=== PATIENT | male | born 1955 | race Caucasian/White ===

== ENCOUNTER → 2020-06-26 | Outpatient (CLI) | payer BC ==
[~2020-06-26] MED LIST: HYDR25TA6 PO; LOSA50TA14 PO
[2020-06-26 13:29] LABS: BASOPHILS % (AUTO) 1 % (0-1); EOSINOPHILS % (AUTO) 5 % (1-7); LYMPHOCYTES % (AUTO) 26 % (22-44); MEAN CORPUSCULAR HGB CONC 33.8 g/dL (33.2-36.2); MEAN PLATELET VOLUME 8.6 fL (7.4-10.4); MONOCYTES % (AUTO) 10 % (2-9); NEUTROPHILS % (AUTO) 58 % (42-75); PLATELET COUNT 314 x10^3/uL (130-400); RED BLOOD COUNT 5.05 x10^6/uL (4.38-5.82); RED CELL DISTRIBUTION WIDTH 14.2 % (9.4-14.8)
[2020-06-26 13:31] LABS: MD NO
[2020-06-26 13:33] LABS: MICROSCOPIC AUTO
[2020-06-26 13:41] LABS: ALBUMIN 3.8 g/dL (3.4-5.0); ANION GAP 7 mmol/L (5-15); CALCIUM 9.2 mg/dL (8.5-10.1); CHLORIDE 104 mmol/L (98-107)
[2020-06-26 13:44] LABS: ALANINE AMINOTRANSFERASE 70 U/L (12-78); ALKALINE PHOSPHATASE 58 U/L (45-117); BILIRUBIN,TOTAL 0.7 mg/dL (0.2-1.0); CREATININE 0.97 mg/dL (0.7-1.3); TOTAL PROTEIN 8.3 g/dL (6.4-8.2)
[2020-06-26 13:46] LABS: INTERNATIONAL NORMALIZED RATIO 1.06 (0.93-1.1); PROTHROMBIN TIME 11.3 Seconds (9.6-11.5)
== END | disposition home or self-care (01) ==
LOC: STAR 11:41
PROVIDERS: ATTEND Obstetrics & Gynecology
DX: Z01.812 Encounter for preprocedural laboratory examination (principal); Z20.822 Contact with and (suspected) exposure to COVID-19; N20.0 Calculus of kidney
CPT/HCPCS: 36415; 80053; 81001; 85025; 85610; 87086; 93005; U0003

== ENCOUNTER 2020-07-02 11:44 | Day surgery (SDC) | payer BC ==
[~2020-07-02] VITALS: Ht 190.5 cm; Wt 192.0 kg
[2020-07-02 12:24] VITALS: BP 174/94
[2020-07-02] MEDS ORDERED: LACTATED RINGERS 1,000 ML IV SCH (12:30)
[2020-07-02] MEDS ORDERED: CHLORHEXIDINE 15 ML UDC PO ONE (12:30)
[2020-07-02] MEDS ORDERED: FENTANYL PF 100 MCG/2ML ONE ×3 (13:42→16:46)
[2020-07-02] MEDS ORDERED: MIDAZOLAM 1 MG/ML, 2ML ONE (13:43)
[2020-07-02] MEDS ORDERED: DEXAMETHASONE 4 MG/ML, 1ML ONE (14:26)
[2020-07-02] MEDS ORDERED: PROPOFOL 10 MG/ML, 20ML ONE (14:26)
[2020-07-02] MEDS ORDERED: SUCCINYLCHOLINE 20 MG/ML, 10ML ONE (14:26)
[2020-07-02] MEDS ORDERED: ONDANSETRON 2MG/ML, 2ML ONE (14:26)
[2020-07-02] MEDS ORDERED: NEOSTIGMINE 1 MG/ML, 10ML ONE (14:26)
[2020-07-02] MEDS ORDERED: CEFAZOLIN 1,000 MG ONE (14:26)
[2020-07-02] MEDS ORDERED: PHENYLEPHRINE 10 MG/ML ONE (14:26)
[2020-07-02] MEDS ORDERED: ROCURONIUM 10 MG/ML,10ML ONE (14:26)
[2020-07-02] MEDS ORDERED: GLYCOPYRROLATE 0.2MG/1ML, 5ML ONE (14:26)
[2020-07-02] MEDS ORDERED: PROMETHAZINE 25 MG/ML, 1ML IVPush PRN (15:30)
[2020-07-02] MEDS ORDERED: ONDANSETRON 2MG/ML, 2ML IVPush PRN (15:30)
[2020-07-02] MEDS ORDERED: MEPERIDINE/PF 25MG/0.5ML IVPush PRN (15:30)
[2020-07-02] MEDS ORDERED: FENTANYL PF 100 MCG/2ML IV PRN (15:30)
[2020-07-02] MEDS ORDERED: KETOROLAC 30 MG/1 ML IVPush PRN (15:30)
[2020-07-02] MEDS ORDERED: HYDROcodone/APAP 7.5-325MG/15ML UDC PO PRN (15:30)
[2020-07-02] MEDS ORDERED: OXYcodone 5 MG/5 ML ORAL.SOL UDC ONE ×2 (16:25→16:46)
[2020-07-02] MEDS ORDERED: hydrALAzine 20 MG/ML, 1ML ONE (16:25)
[2020-07-02] MEDS ORDERED: ACETAMINOPHEN 650 MG/20.3 ML UDC ONE (16:25)
[2020-07-02] MEDS: OXYcodone 5 MG/5 ML ORAL.SOL UDC PO PRN ×2 (16:29→16:47)
[2020-07-02] MEDS ORDERED: KETOROLAC 30 MG/1 ML ONE (16:40)
== END 2020-07-02 18:20 | disposition home or self-care (01) ==
LOC: OR 11:44 → OUT 18:20
PROVIDERS: ATTEND Urology
DX: N20.0 Calculus of kidney (principal); N21.0 Calculus in bladder; G47.33 Obstructive sleep apnea (adult) (pediatric); I10 Essential (primary) hypertension; E66.01 Morbid (severe) obesity due to excess calories; Z68.43 Body mass index [BMI] 50.0-59.9, adult; Z79.899 Other long term (current) drug therapy; Z87.442 Personal history of urinary calculi; Z91.048 Other nonmedicinal substance allergy status
CPT/HCPCS: 52353; 74018; 82360; 88300; C1758; C1769; J0330; J0690; J1100; J1885; J2250; J2370; J2405; J2704; J2710; J3010; J7120; 76000

== ENCOUNTER 2020-07-04 05:55 | Emergency (ER) | payer BC ==
[~2020-07-04] VITALS: Ht 190.5 cm; Wt 193.0 kg
--- NOTE | 2020-07-04 06:28 | NUR ---
INITIAL PT CONTACT. PT PRESENTS TO ED C/O "BLOOD SUGAR ALL OVER THE PLACE, FREQUENT URINATION, DARK BLOODY URINE, WITH RECENT KIDNEY STONE REMOVAL [address] HOLLAND, ALSO FUNKY BLOOD PRESSURE". FSBS 254 IN TRIAGE. PT. REPORTS FSBS AT HOME 300. PT SITTING UPRIGHT ON GURJIMMY, NADNeil, VSS. SPOUSE AT BEDSIDE AND CALL LIGHT WITHIN REACH. AWAITING ERP.
[2020-07-04 06:40] LABS: BASOPHILS % (AUTO) 1 % (0-1); EOSINOPHILS % (AUTO) 1 % (1-7); LYMPHOCYTES % (AUTO) 20 % (22-44); MEAN CORPUSCULAR HEMOGLOBIN 29.9 pg (27.5-34.5); MEAN CORPUSCULAR HGB CONC 33.7 g/dL (33.2-36.2); MEAN PLATELET VOLUME 8.8 fL (7.4-10.4); MONOCYTES % (AUTO) 6 % (2-9); NEUTROPHILS % (AUTO) 72 % (42-75); PLATELET COUNT 326 x10^3/uL (130-400); RED BLOOD COUNT 4.95 x10^6/uL (4.38-5.82); RED CELL DISTRIBUTION WIDTH 13.9 % (9.4-14.8)
--- NOTE | 2020-07-04 06:40 | NUR ---
3-WAY CATH INSERTION PER COMPANY POLICY, AREA CLEANSED PER POLICY. PT TOLERATED WELL. 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 ERP AWARE. PT DENIES ANY NEEDS AT THIS TIME. CALL LIGHT AND PERSONAL BELONGINGS WITHIN REACH. SPOUSE AT BEDSIDE.
[2020-07-04 06:42] LABS: MICROSCOPIC INDICATED
[2020-07-04 06:42] LABS: MD NO
[2020-07-04 06:48] LABS: ALANINE AMINOTRANSFERASE 50 U/L (12-78); ALBUMIN 3.4 g/dL (3.4-5.0); ANION GAP 7 mmol/L (5-15); CALCIUM 8.1 mg/dL (8.5-10.1); CHLORIDE 105 mmol/L (98-107); CREATININE 1.05 mg/dL (0.7-1.3)
[2020-07-04 06:51] LABS: ALKALINE PHOSPHATASE 55 U/L (45-117); BILIRUBIN,TOTAL 0.3 mg/dL (0.2-1.0); TOTAL PROTEIN 7.7 g/dL (6.4-8.2)
--- NOTE | 2020-07-04 06:59 | NUR ---
REPORT RECEIVED FROM EDUAR FABIAN
--- NOTE | 2020-07-04 07:09 | NUR ---
BEDSIDE REPORT TO DAISY AND CHRISTINA FABIAN
--- NOTE | 2020-07-04 07:49 | NUR ---
URINE IS LOOKING CLEAR AFTER 3L CBI. MD LYN REASSESSED, RN NSTRUCTED TO PAUSE CBI. CBI CLAMPED, MARTI DRAINING FREELY. PT A&O, RESPS EVEN AND UNLABORED, PT DENIES PAIN. RN MONITORING UO, AWAITING REASSESSMNT AND DISPO.
[2020-07-04 08:47] VITALS: BP 146/77
--- NOTE | 2020-07-04 09:03 | NUR ---
UO REASSESSED BY MD LYN, URINE LIGHT PNK AND DRAINING FREELY FROM MARTI. MARTI CATH DC'D PER MD ORDER. PT GIVEN DISCHARGE INSTRUCTIONS WITH UROLOGY FOLLOW UP. PT EDUCATED ON RETURN CRITERIA. PT A&O, RESPS EVEN AND UNLABORED, AMBULATED TO DISCHARGE DESK WITH STEADY GAIT. NO COMPLAINT OF PAIN AT DISCHARGE.
== END 2020-07-04 09:04 | disposition home or self-care (01) ==
LOC: ED 06:57
DX: R31.0 Gross hematuria (principal); E11.65 Type 2 diabetes mellitus with hyperglycemia
CPT/HCPCS: 36415; 80053; 81001; 82962; 85025; 87086; 99283